=== PATIENT | female | born 1995 | race Caucasian/White ===

== ENCOUNTER 2017-02-24 19:37 | Emergency (ER) | payer BC ==
[~2017-02-24 19:37] MED LIST: IRON1 TA1 PO; PERCOCET5/325 PO; VIT C PO; WAL-PROFEN200 M1 PO; ZOLOFT50 MG PO
== END 2017-02-24 19:59 | disposition home or self-care (01) ==
LOC: SED 19:37
DX: S61.512A Laceration without foreign body of left wrist, initial encounter (principal); Z23 Encounter for immunization; W20.8XXA Other cause of strike by thrown, projected or falling object, initial encounter
CPT/HCPCS: 12001; 90471; 90715; 99283

== ENCOUNTER 2017-03-06 14:54 | Emergency (ER) | payer BC | END 2017-03-06 15:06 | disposition home or self-care (01) | LOC: SED 14:54 | DX: S51.812D Laceration without foreign body of left forearm, subsequent encounter (principal); W45.8XXD Other foreign body or object entering through skin, subsequent encounter; Y92.9 Unspecified place or not applicable | CPT/HCPCS: 99281 ==